=== PATIENT | female | born 1980 | race Caucasian/White ===

== ENCOUNTER 2024-11-08 14:27 | Observation (INO) | payer OTHER, SELFPAY ==
[2024-11-08] VITALS (11 sets, daily range): BP systolic 101–123; BP diastolic 63–91; PULSE 73–74; BMI 18.2
--- NOTE | 2024-11-08 08:32 | ED.GENMED ---
History of Present Illness
General
Chief Complaint: Fainting/Passed Out
Source: patient
Exam Limitations: none
Time Seen by Provider: 11/08/24 08:13
History of Present Illness
History of Present Illness:
44yoF with a history of bipolar disorder and alcohol abuse presenting for evaluation after a syncopal episode. Patient admits to being on a 2 day drinking mehta a few days ago. Last drink was about 36 hours ago. She had a hangover yesterday and
was feeling very dehydrated. She got out of bed and was walking to get some water. She had a syncopal episode in the hallway and struck her head causing a laceration. The episode was unwitnessed so unclear how long she was unconscious for. She
denies any preceding dizziness. She continues to feel dehydrated and has been vomiting. She is otherwise asymptomatic and denies any headache, chest pain, shortness of breath, palpitations.
Past History
Past History
ED Past Medical History: Psychiatric
ED Past Surgical History:
Social History
Tobacco: Non-smoker
Alcohol: Chronic alcoholic
Drug: None
Personal:
Living: alone
Phy Exam
General Physical Exam
General Presentation: well appearing and no apparent distress
General Skin: warm and dry
General Habitus: normal
General Mental: alert
ENT Exam
ENT Exam: other (4cm gaping laceration noted to L eyebrow)
Eye Exam
Eye Exam: PERRL and conjunctiva normal
Cardiovascular Exam
Cardiovascular Exam: regular rate/rhythm and no murmur
Pulmonary Exam
Pulmonary Exam: lungs clear, no respiratory distress, no rales, no crackles, no rhonchi and no wheezing
Neurological Exam
Neurological Exam: alert
Carol Coma Scale
Eye Opening: Spontaneous
Verbal Response: Oriented
Motor Response: Obeys Commands
GCS Total Score: 15
Skin Exam
Skin Exam: normal color and warm/dry
Psychiatric Exam
Psychiatric Exam: normal mood/affect
Course
Orders/Labs/Results
Orders:
Orders
11/08/24 Breakfast
Regular
At Your Request: Limited Participation
Does patient need a safe tray?: No
11/08/24 07:55
Electrocardiogram (*1) Urgent
Reason for Study: Syncope
EKG- Treatment ONCE
11/08/24 08:30
Cardiac Monitoring- Treatment ONCE
Tetanus/Diphth/Acelpertussis [Adacel] 0.5 ml IM .ONCE ONE
11/08/24 08:31
CT Head W/o Iv Contrast Urgent
Comment:
Reason For Exam: syncope, head strike
0.9% Sodium Chloride 1000 ml [Nss] 1,000 ml IV BOLUS
Test Result ONCE
11/08/24 08:36
Complete Blood Count/With Diff Urgent
Comprehensive Metabolic Panel Urgent
HCG, Serum Qualitative Screen Urgent
Magnesium Urgent
Troponin I Urgent
11/08/24 09:44
Ice Pack-Treatment DIRECTED
Location: L eyebrow
Trimethobenzamide [Tigan] 200 mg IM NOW STA
11/08/24 10:19
EKG- Treatment ONCE
11/08/24 10:49
Troponin I Urgent
11/08/24 11:30
Electrocardiogram (*1) Urgent
Reason for Study: Syncope
11/08/24 12:28
0.9% Sodium Chloride 1000 ml [Nss] 1,000 ml IV BOLUS
11/08/24 13:18
0.9% Sodium Chloride 1000 ml [Nss] 1,000 ml Mvi, Adult [Multivitamin] 10 ml Thiamine Injection 100 mg IV 125 mls/hr
11/08/24 13:19
Admit/Transfer Patient As Directed
Co-Sign Provider:
Level of Care: Observation services
Assign to:: Telemetry
Physician / Group: Hannah
Diagnosis: Syncope
Reason for Telemetry: Syncope
Date to Stop Telemetry: 11/10/24
Time to Stop Telemetry: 11:00
PRN Pain Medication Management As Directed
May give lesser potent ordered pain med per pt: Yes
preference::
Protocol:: Medication orders for pain may be administered in a
manner that supports deferring to patient preference
when the pt is:
- Requesting an ordered lesser potent pain medication.
Least to most potent pain medications are defined
as: acetaminophen < NSAID < tramadol < opioids
(morphine, oxycodone, hydromorphone).
- Requesting a lesser dose of the same medication IF
ORDERED.
- Requesting a less intrusive route of administration
if both routes are prescribed by the provider (PO <
IV).
11/08/24 13:20
Code Status As Directed
Resuscitation Status: Full Code
11/10/24 11:00
DC Protocol for Telemetry ONCE
Abnormal Lab Results
11/08/24
08:36
WBC 14.5 H 10^3/uL
(4.8-10.8)
MCH 32.2 H pg
(27.0-31.0)
Abs Immat Gran (auto) 0.1 H 10^3/uL
(0-0.05)
Absolute Neuts (auto) 12.9 H 10^3/uL
(1.4-6.5)
Absolute Lymphs (auto) 1.1 L 10^3/uL
(1.2-3.4)
Neutrophils % 88.8 H %
(42.2-75.2)
Lymphocytes % 7.6 L %
(20.5-51.1)
Carbon Dioxide 19 L mmol/L
(22-30)
BUN 29 H mg/dl
(7-17)
Glucose 114 H mg/dl
(70-99)
AST 39 H U/L
(14-36)
11/08/24 08:36
11/08/24 08:36
Vital Signs
Initial and Last Documented VS:
Initial Vital Signs
Temp Pulse Resp BP Pulse Ox
98.0 F 93 16 110/72 98
11/08/24 07:53 11/08/24 07:53 11/08/24 07:53 11/08/24 07:53 11/08/24 07:53
Last Documented Vital Signs
Temp Pulse Resp BP Pulse Ox
98.0 F 76 13 101/63 99
11/08/24 07:53 11/08/24 15:30 11/08/24 15:30 11/08/24 12:00 11/08/24 15:30
Procedures
Laceration Closure
Left Eye brow:
Status of Wound: clean
Size of Wound in cm: 4
Description of Wound Edges: sharp
Preparation: cleaned with saline
Anesthesia: 1% Lidocaine with epi
Wound exploration: explored to base- no FB
Type of Closure: single layer closure and interrupted sutures
Skin Closure Material: 5-0 nylon
Number of sutures: 5
MDM/Problems Addressed
Differential Diagnosis Includes:
44yoF here after a syncopal episode last night while getting out of bed. Admits to feeling dehydrated with recent alcohol use. VSS. There is a gaping L eyebrow laceration on exam. Differential diagnosis includes but is not limited to: Dehydration,
orthostatic hypotension, vasovagal episode, cardiogenic syncope
Initial ED plan: Check cardiac labs, hCG, magnesium, EKG, and CT head. IV fluid bolus. Repair eyebrow laceration and update Tdap.
*EKG
Interpreted by ED Provider?: Yes
EKG Intrepretation Date: 11/08/24
Heart Rate: 76
Rate: normal
Rhythm: sinus
Alfred: normal axis
Interval: other (QTc 492)
QRS Pattern: normal QRS
Ischemia: no ischemia
*Critical Care Note
Total Time (30-74mins, 75-104mins- exclusive of procedures): Not Applicable
Update Note
Update Note:
EKG shows normal sinus rhythm with a prolonged QTc at 492. Electrolytes within normal limits. White count is 14.5 which may be reactive secondary to vomiting. Troponin within normal limits. CT head negative for acute findings. Eyebrow
laceration repaired as above. Repeat EKG and troponin unchanged. Upon reassessment, patient states she feels very wobbly and feels unsafe to go home. Will admit for further evaluation and management.
ED Attending Note
-
Portions of this chart may have been created with voice recognition software.� Occasional wrong word or��sound alike� substitutions may have occurred due to the inherent limitations of voice recognition software.
Discharge Plan
Departure
Patient Disposition: Admit
Date of Disposition: 11/08/24
Time of Disposition: 12:32
Presentation/result/management discussed w/ accepting MD/DO: Hospitalist
Discharge Problem:
Syncope, Prolonged QT interval, Laceration of left eyebrow, Nausea and vomiting
Interventions
Interventions:
*Risk Screen - Suicide Last Done: 11/08/24 07:53
*Neglect/Abuse Screening Last Done: 11/08/24 07:53
*ED- Fall Risk Assessment Last Done: 11/08/24 08:59
*ED COVID-19 Vaccine History Last Done: 11/08/24 08:59
ED- Cardiac Assessment Last Done: 11/08/24 08:59
ED- Neurological Assessment Last Done: 11/08/24 08:59
[2024-11-08] MEDS: NSS 1000 IV ×2 (08:37→13:31)
[2024-11-08] MEDS: ADACEL 0.5 ML IM (08:41)
[2024-11-08 08:49] LABS: % Basophils 0.3 % (0-2); % Immature Granulocytes 0.3 % (0-0.5); % Lymphocytes 7.6 % (20.5-51.1); % Neutrophils 88.8 % (42.2-75.2); Absolute Immature Granulocytes 0.1 10^3/uL (0-0.05); Absolute Lymphocytes 1.1 10^3/uL (1.2-3.4); Absolute Monocytes 0.4 10^3/uL (0.1-0.6); Absolute Neutrophils 12.9 10^3/uL (1.4-6.5); Hematocrit 38.1 % (37.0-47.0); Hemoglobin 13.6 g/dL (12.0-16.0); Mean Corp Hgb Conc. 35.7 g/dL (33.0-37.0); Mean Corpuscular Hgb 32.2 pg (27.0-31.0); Mean Corpuscular Volume 90.3 fL (81.0-99.0); Mean Platelet Volume 9.3 fL (7.4-10.4); Nucleated Red Blood Cells % 0 %; Platelet Count 242 10^3/uL (130-400); Red Blood Cell Count 4.22 10^6/uL (4.20-5.40); White Blood Cell Count 14.5 10^3/uL (4.8-10.8)
[2024-11-08 08:56] LABS: HCG, Serum Qualitative Screen Negative
[2024-11-08 09:01] LABS: AST (SGOT) 39 U/L (14-36); Albumin 4.7 g/dl (3.5-5.0); Blood Urea Nitrogen 29 mg/dl (7-17); Calcium 9.3 mg/dl (8.4-10.2); Carbon Dioxide 19 mmol/L (22-30); Chloride 98 mmol/L (98-107); Glucose 114 mg/dl (70-99); Magnesium 2.2 mg/dl (1.6-2.3); Total Bilirubin 1.2 mg/dl (0.2-1.3); Total Protein 7.3 g/dl (6.3-8.2); eGFR > 60.00
[2024-11-08 09:12] LABS: Troponin I < 0.012 ng/ml
[2024-11-08 09:28] LABS: Alkaline Phosphatase 63 U/L (38-126); Potassium 4.5 mmol/L (3.5-5.1); Sodium 136 mmol/L (135-145)
[2024-11-08] MEDS: TIGAN 200 MG IM (10:25)
[2024-11-08 10:37] LABS: ALT (SGPT) 32 U/L (0-35)
[2024-11-08 11:27] LABS: Troponin I < 0.012 ng/ml
--- NOTE | 2024-11-08 13:23 | HPS.HSE ---
Family Physician
-
Family Physician: Essence Deal
Chief Complaint
-
Syncope
History of Present Illness
Patient is a 44 y/o female anxiety and alcohol use disorder who presents following a syncopal episode. Patient reports she went on two day drinking binge consuming several bottles of wine over that timeframe. Yesterday she got up to get some water
and passed out. She does not recall much about the event except waking up on the floor with a cut over her left eye. Patient reports following prior binges she experiencing lightheadedness due to dehydration.
Medical History
Past Medical History
Past Medical History: Reports Other
Additional Past Medical History:
Generalized Anxiety Disorder
Alcohol Use Disorder
Past Surgical History: Reports
Social History
Tobacco: Non-smoker
Alcohol: Binge drinker
Family History
Family History: Not pertinent
Allergies / Home Medications
Allergies reflects when Allergies were last updated in [employer].
Home Medications with original date entered in [employer]
Allergy/Medication List:
Allergies
Allergy/AdvReac Type Severity Reaction Status Date / Time
Penicillins Allergy Hives Verified 11/08/24 07:54
Home Medications
bupropion HCl 150 mg 24 hr tablet, extended release 150 mg PO DAILY 11/08/24
desvenlafaxine succinate 50 mg tablet,extended release 24 hr 50 mg PO HS 11/08/24
lurasidone 60 mg tablet 60 mg PO QPM 11/08/24
trazodone 100 mg tablet 100 mg PO HS 11/08/24
Review of Systems
-
A 12 point ROS was completed and negative except as noted: Yes
Constitutional: Denies Fever
Respiratory: Denies Cough or Trouble Breathing
Cardiac: Denies Chest Pain or Palpitations
Physical Exam
Vital Signs
Vital Signs
Temp Pulse Resp BP Pulse Ox
98.0 F 78 11 115/79 98
11/08/24 07:53 11/08/24 08:45 11/08/24 08:45 11/08/24 10:32 11/08/24 07:53
Physical Exam
General: Comfortable and Conversant
HEENT: NormoCephalic, Anicteric and Other (Laceration over left eyebrow with sutures in place)
Respiratory: Clear and Non Labored Respirations
Cardiac: S1/S2 and Regular Rhythm
GI: Soft and Non Tender
Rectal: Deferred by Provider
Musculoskeletal: No Clubbing, No Cyanosis and No Edema
Skin: Warm and Dry
Neuro: Awake, Alert, Oriented and Nonfocal/grossly intact
Psych: Calm
Laboratory Results
-
11/08/24 08:36
11/08/24 08:36
Laboratory Results
Total Bilirubin 1.2 mg/dl (0.2-1.3) 11/08/24 08:36
AST 39 U/L (14-36) H 11/08/24 08:36
ALT 32 U/L (0-35) 11/08/24 08:36
Alkaline Phosphatase 63 U/L (38-126) 11/08/24 08:36
Troponin I < 0.012 ng/ml 11/08/24 10:49
Data Reviewed
-
Lab Data: Labs Reviewed by me
Impression/Plan
-
Syncope, suspect volume depletion following alcohol binge
-Continue IVFs
-Monitor on Telemetry
-Check orthostatic vital signs
Prolonged QT, likely related to psych meds and alcohol use
-Continue psych meds at current doses
-Recheck ECG in AM
-If QT remains prolonged may need to consider decreasing medication doses - Patient notes trazodone dose increased about a month ago
Generalized Anxiety Disorder
-Continue bupropion, Pristiq, Latuda and Trazodone
Alcohol Use Disorder
-Continue thiamine and folic acid
-Monitor for withdrawal
DVT proph: SCDs
Code Status: Full Code
--- NOTE | 2024-11-08 13:33 | W.PN.UPDATE ---
Update Note
Progress Note Update
This is an addendum to the H&P written by Selena Skelton on 11/08/2024.� Patient seen examined independently with PA.
44-year-old female past medical history of alcohol use disorder, prior syncopal episode/dizziness secondary to alcohol, anxiety, presenting with syncopal episode.� She was binge drinking alcohol with multiple bottles of wine over the past few days.�
Has forehead laceration.
Not currently in withdrawal.� EKG shows QTc of 492.�
Labs show leukocytosis.
Patient with syncopal episode with forehead laceration secondary to volume depletion from been drinking alcohol.� Not currently in withdrawal.� QTc prolongation likely secondary to psychiatric medications and alcohol.
Patient has stitches for forehead laceration.
IV fluids with thiamine and folate.� Alcohol withdrawal protocol.� Check EKG tomorrow, anticipate QTc prolongation should improve with alcohol cessation.
[2024-11-08] MEDS: MULTIVITAMIN 1011 MG IV (15:13)
[2024-11-08] MEDS: MULTIVITAMIN 1011 ML IV (15:13)
[2024-11-08] MEDS: LATUDA 60 MG PO (18:18)
[2024-11-08] MEDS: VITAMIN B1 100 MG PO (19:58)
[2024-11-08] MEDS: TYLENOL 650 MG PO (19:58)
[2024-11-08] MEDS: PRISTIQ 50 MG PO (21:18)
[2024-11-08] MEDS: DESYREL 100 MG PO (21:19)
[2024-11-08] MEDS: ATIVAN 1 MG PO (21:35)
[2024-11-09 02:56] VITALS: BP 112/66
[2024-11-09] MEDS: NSS 1000 IV ×3 (04:59→23:07)
[2024-11-09 07:00] VITALS: BP 108/69; BP 114/70; BP 123/71; PULSE 68; PULSE 72; PULSE 75
[2024-11-09 07:17] LABS: Blood Urea Nitrogen 16 mg/dl (7-17); Calcium 8.4 mg/dl (8.4-10.2); Carbon Dioxide 28 mmol/L (22-30); Chloride 106 mmol/L (98-107); Estimated Creatinine Clearance 79 ml/min; Glucose 81 mg/dl (70-99); Magnesium 2.4 mg/dl (1.6-2.3); Potassium 4.3 mmol/L (3.5-5.1); Sodium 139 mmol/L (135-145); eGFR > 60.00
[2024-11-09] MEDS: WELLBUTRIN XL (24 hour extended release) 150 MG PO (08:18)
[2024-11-09] MEDS: VITAMIN B1 100 MG PO (08:18)
[2024-11-09] MEDS: FOLVITE 1 MG PO (08:18)
--- NOTE | 2024-11-09 08:58 | W.PN.HOSP.TC ---
Today's Communication/Plan
-
IV thiamine
BMP & CBC in AM
Assessment / Plan
Assessment / Plan
Physical Exam
General: Comfortable and Conversant
HEENT: NormoCephalic, Anicteric and Other (Laceration over left eyebrow with sutures in place)
Respiratory: Clear and Non Labored Respirations
Cardiac: S1/S2 and Regular Rhythm
GI: Soft and Non Tender
Rectal: Deferred by Provider
Musculoskeletal: No Clubbing, No Cyanosis and No Edema
Skin: Warm and Dry
Neuro: Awake, Alert, Oriented and Nonfocal/grossly intact
Psych: Calm
Syncope, suspect vasovagal with volume depletion following alcohol binge and not eating for 2-[address] head no acute finding. Negative orthostatic hypotension. No cardiac arrhythmias on heart monitor. Reviewed EKGs with on-call driver education road instructor, no need for inpatient consultation, recommend alcohol cessation.
-Continue IVFs also discussed with neurologist on-call,
-No indication for EEG. Recommend alcohol cessation
-Monitor on Telemetry
Prolonged QT, likely related to psych meds and alcohol use now normalized, reviewed with driver education road instructor on-call,
-Continue psych meds at current doses
Normal magnesium potassium level
Generalized Anxiety Disorder
She reports good outpatient care receiving with her psychologist/psychiatrist, no medication side effects noted. No homicidal or suicidal thoughts
-Continue bupropion, Pristiq, Latuda and Trazodone
#Alcohol Use Disorder
Patient reports good social support from family/parents.
Due to history of syncopal episode, will give high-dose thiamine/short course
-Continue thiamine and folic acid
-Monitor for withdrawal.
Currently, she is lucid and fully oriented with no signs of delirium.
DVT proph: Subcu Lovenox
Underweight, she reports daily running around 3 miles. Advised to continue healthy lifestyle/avoid alcohol/improve diet and take supplements
#Left eyebrow wound after the fall, sutures are clean. No bleeding
#Leukocytosis, reactive, no fever. No hypoxia. No GI or urinary symptoms.
Code Status: Full Code
Total time spent to see the patient, examine the patient, review data and lab result, discuss treatment plan with the patient, nursing staff around 55 minutes
Anticipated Discharge: 24 - 48 hours
Subjective/Interval History
-
Date of Service: November 09, 2024
she is feeling better
No confusion or anxiety
Objective Data
-
Labs:
Laboratory Results
11/09/24
05:48
Sodium 139
Potassium 4.3
Chloride 106
Carbon Dioxide 28
BUN 16
Creatinine 0.7
Glucose 81
Calcium 8.4
Vital Signs:
Vital Signs
Temp Pulse Resp BP Pulse Ox
98 F 75 19 108/69 98
11/09/24 07:00 11/09/24 07:00 11/09/24 07:00 11/09/24 07:00 11/09/24 07:00
I&O
11/08/24 11/09/24 11/10/24
06:59 06:59 06:59
Intake Total 1580 / 1580
Balance 1580 / 1580
--- NOTE | 2024-11-09 10:24 | CM ---
Addendum entered by Norah Metz 11/09/24 10:58:
CM was able to awake pt. She is from home, [facility] and [facility]. Plan is to dc home with no needs. Pt will arrange transport with family when medically stable for dc. Per pt she is still pending a Cards and Neuro Consult. Spoke with RN.
Original Note:
MARJAN reviewed chart. Pt arrived from home. Attempted to complete assessment but pt was unavailable to speak with. Will try to reassess at a later time. Anticipate dc to home at dc.
MARJAN/GREG will continue to follow.
[2024-11-09 11:00] VITALS: BP 114/72
[2024-11-09] MEDS: TYLENOL 650 MG PO ×2 (12:27→17:12)
[2024-11-09 15:00] VITALS: BP 115/76
[2024-11-09] MEDS: THIAMINE INJECTION 255 MG IV ×2 (15:05→23:08)
[2024-11-09] MEDS: LATUDA 60 MG PO (17:14)
[2024-11-09 19:47] VITALS: BP 110/76
[2024-11-09] MEDS: HEPARIN 5000 UNITS SC (19:53)
[2024-11-09] MEDS: DESYREL 100 MG PO (21:02)
[2024-11-09] MEDS: PRISTIQ 50 MG PO (21:02)
[2024-11-09 23:14] VITALS: BP 105/68
[2024-11-10 03:35] VITALS: BP 113/73
[2024-11-10] MEDS: TYLENOL 650 MG PO ×2 (03:48→09:23)
[2024-11-10 06:54] VITALS: BP 112/76
[2024-11-10] MEDS: WELLBUTRIN XL (24 hour extended release) 150 MG PO (08:03)
[2024-11-10] MEDS: FOLVITE 1 MG PO (08:03)
[2024-11-10] MEDS: HEPARIN 5000 UNITS SC (08:04)
[2024-11-10] MEDS: THIAMINE INJECTION 255 MG IV (08:04)
[2024-11-10 08:12] LABS: Hematocrit 31.9 % (37.0-47.0); Hemoglobin 11.1 g/dL (12.0-16.0); Mean Corp Hgb Conc. 34.8 g/dL (33.0-37.0); Mean Corpuscular Hgb 31.7 pg (27.0-31.0); Mean Corpuscular Volume 91.1 fL (81.0-99.0); Mean Platelet Volume 10.1 fL (7.4-10.4); Platelet Count 167 10^3/uL (130-400); White Blood Cell Count 4.2 10^3/uL (4.8-10.8)
[2024-11-10 08:13] LABS: ALT (SGPT) 19 U/L (0-35); AST (SGOT) 28 U/L (14-36); Albumin 3.7 g/dl (3.5-5.0); Alkaline Phosphatase 48 U/L (38-126); Blood Urea Nitrogen 6 mg/dl (7-17); Calcium 8.3 mg/dl (8.4-10.2); Carbon Dioxide 26 mmol/L (22-30); Chloride 107 mmol/L (98-107); Estimated Creatinine Clearance 92 ml/min; Glucose 92 mg/dl (70-99); Magnesium 1.9 mg/dl (1.6-2.3); Potassium 3.7 mmol/L (3.5-5.1); Sodium 139 mmol/L (135-145); Total Bilirubin 0.8 mg/dl (0.2-1.3); Total Protein 5.7 g/dl (6.3-8.2); eGFR > 60.00
[2024-11-10 11:00] VITALS: BP 110/74
[2024-11-10] MEDS: NSS 1000 IV (11:24)
--- NOTE | 2024-11-10 12:21 | W.PN.HOSP.TC ---
Today's Communication/Plan
-
Ok for DC today
Assessment / Plan
Assessment / Plan
Physical Exam
General: Comfortable and Conversant
HEENT: NormoCephalic, Anicteric and Other (Laceration over left eyebrow with sutures in place)
Respiratory: Clear and Non Labored Respirations
Cardiac: S1/S2 and Regular Rhythm
GI: Soft and Non Tender
Rectal: Deferred by Provider
Musculoskeletal: No Clubbing, No Cyanosis and No Edema
Skin: Warm and Dry
Neuro: Awake, Alert, Oriented and Nonfocal/grossly intact
Psych: Calm
Syncope, suspect vasovagal with volume depletion following alcohol binge and not eating for 2-[address] head no acute finding. Negative orthostatic hypotension. No cardiac arrhythmias on heart monitor. Reviewed EKGs with on-call de icer element winder, no need for inpatient consultation, recommend alcohol cessation.
-Continue IVFs also discussed with neurologist on-call,
-No indication for EEG. Recommend alcohol cessation
-Monitor on Telemetry
Prolonged QT, likely related to psych meds and alcohol use now normalized, reviewed with de icer element winder on-call,
-Continue psych meds at current doses
Normal magnesium potassium level
Generalized Anxiety Disorder
She reports good outpatient care receiving with her psychologist/psychiatrist, no medication side effects noted. No homicidal or suicidal thoughts
-Continue bupropion, Pristiq, Latuda and Trazodone
#Alcohol Use Disorder
Patient reports good social support from family/parents.
Due to history of syncopal episode, will give high-dose thiamine/short course
-Continue thiamine and folic acid
-Monitor for withdrawal.
Currently, she is lucid and fully oriented with no signs of delirium.
DVT proph: Subcu Lovenox
Underweight, she reports daily running around 3 miles. Advised to continue healthy lifestyle/avoid alcohol/improve diet and take supplements
#Left eyebrow wound after the fall, sutures are clean. No bleeding
#Leukocytosis, reactive, no fever. No hypoxia. No GI or urinary symptoms.
Code Status: Full Code
Total time spent to see the patient, examine the patient, review data and lab result, discuss treatment plan with the patient, nursing staff around 55 minutes
Anticipated Discharge: Today
Subjective/Interval History
-
Date of Service: November 10, 2024
feeling well except pain at laceration site
eating and drinking well
feels ready to leave hospital
Objective Data
-
Labs:
Laboratory Results
11/10/24
06:39
WBC 4.2 L
Hgb 11.1 L
Hct 31.9 L
Plt Count 167 D
Sodium 139
Potassium 3.7
Chloride 107
Carbon Dioxide 26
BUN 6 L
Creatinine 0.6
Glucose 92
Calcium 8.3 L
Total Bilirubin 0.8
AST 28
ALT 19
Alkaline Phosphatase 48
Vital Signs:
Vital Signs
Temp Pulse Resp BP Pulse Ox
98.1 F 71 18 112/76 99
11/10/24 06:54 11/10/24 06:54 11/10/24 06:54 11/10/24 06:54 11/10/24 08:00
I&O
11/09/24 11/10/24 11/11/24
06:59 06:59 06:59
Intake Total 1580 / 1580 3715 / 3715
Balance 1580 / 1580 3715 / 3715
Review of Systems
-
History Source: Patient
All other systems: Reviewed and negative
Physical Exam
-
General: No Apparent Distress
HEENT: Other (forehead laceration above left eye with 5 sutures )
Respiratory: Clear to Auscultation; Negative Wheezes
Cardiac: Regular Rhythm and S1/S2
GI: Soft and Nontender
Musculoskeletal: No Edema
Skin: Warm and Dry; Negative Rash
Neuro: AO x 3
Psych: Calm
Data Reviewed
-
Diagnostic Radiology: Report Reviewed by me
Labs: Labs Reviewed by me
--- NOTE | 2024-11-10 12:33 | W.DS.TRANS ---
DC Summary - School Adjustment Counselor
-
Discharge Instructions:
Discharge Diagnosis/Procedures syncope in setting of alcohol intoxication with
left forehead laceration
Diet Regular
Activity As tolerated
Driving Restrictions As prior to admission
Bathing Restrictions None
Instructions:
Stand-Alone Forms:
Changes to Home Medications: Yes
Discharge Medications:
DC Medications w/original date entered in [employer]
bupropion HCl 150 mg 24 hr tablet, extended release 150 mg PO DAILY 11/08/24
desvenlafaxine succinate 50 mg tablet,extended release 24 hr 50 mg PO HS 11/08/24
lurasidone 60 mg tablet 60 mg PO QPM 11/08/24
trazodone 100 mg tablet 100 mg PO HS 11/08/24
folic acid 1 mg tablet 1 mg PO DAILY #30 tabs 11/10/24
thiamine HCl (vitamin B1) 100 mg capsule 100 mg PO DAILY #30 caps 11/10/24
Home Medication Changes
addition of thiamine/folate
Pending Results: No
--- NOTE | 2024-11-10 13:04 | CM ---
Patient stable for d/c today.
Met w/ patient bedside, agreeable to d/c today. Patient admitted as obs. MARIE form verbally reviewed, copy given to patient, copy on chart
Parents will transport home
Plan: Home, no needs
--- NOTE | 2024-11-10 14:32 | W.DCSUMMARY ---
Discharge Summary
Discharge Data
Date of Admission: 11/08/24
Date of Discharge: 11/10/24
-
Pending Results: No
Hospital Course
Discharging Physician : Dr. Monet Lee
Disposition : Home
Primary care physician : Dr. Essence Deal
Principal Discharge diagnosis : Syncope in setting of alcohol intoxication
Hospital Course :
Ms. Tiffany Valdez is a 44 yo woman with hx generalized anxiety disorder, alcohol use disorder with history of binge drinking who presents to the ER after an episode of syncope. Patient was on a two day drinking binge. Triage vitals stable. Labs
with WBC 14.5., creatinine 0.9. Initial EKG with QTc 492; improved to 478.
She was admitted to medicine and monitored on telemetry without acute events. Etiology of syncope likely orthostasis in setting of dehydration versus vasovagal. Case discussed with Cardiology and Neurology and no further work-up recommended.
Patient was feeling better on HD 2, has not required Ativan for alcohol withdrawal. She is eating and drinking well. She has a good support network at home and felt ready for discharge.
Patient had sustained a left eyebrow laceration from fall and is s/p 5 sutures in her ER visit. These should be removed after 5 days (November 13). Patient is told to follow up with PCP for suture removal. Head CT without acute abnormality.
Time spent on discharge was 32 minutes.
Important imaging findings :
HEAD CT 11/08/24
IMPRESSION:
No acute intracranial abnormality noted.
No calvarial fracture. Left anterior frontal superficial scalp soft tissue injury.
Procedure findings :
Discharge Plan
-
Patient Disposition: Home (Routine Discharge)
Discharge Diagnosis/Procedures: syncope in setting of alcohol intoxication with left forehead laceration
Condition: Good
Diet: Regular
Activity: As tolerated
Driving Restrictions: As prior to admission
Bathing Restrictions: None
Referrals:
Essence Deal MD [Primary Care Provider] - in less than 1 week
Additional Discharge Medication Instructions: Please follow up with medical provider 11/13 for suture removal (5 days post placement)
Prescriptions:
New
folic acid 1 mg Tablet
1 mg PO DAILY Qty: 30 0RF
thiamine HCl (vitamin B1) 100 mg capsule
100 mg PO DAILY Qty: 30 0RF
Continued
trazodone 100 mg Tablet
100 mg PO HS
bupropion HCl 150 mg tablet extended release 24 hr
150 mg PO DAILY
desvenlafaxine succinate 50 mg tablet extended release 24 hr
50 mg PO HS
lurasidone 60 mg tablet
60 mg PO QPM
Rx Instructions:
take with at least 350 calories of food
Discharge Orders:
Discharge Patient (As Directed); Ordered 11/10/24
Ordered By: Monet Lee
Discharge Date and Time
Discharge Date/Time: 11/10/24 14:27
Print Language: MONGOLIAN
== END 2024-11-10 14:27 | disposition home or self-care (01) ==
LOC: 4 WEST ACU 14:27
PROVIDERS: Internal Medicine; Physician Assistant; Physician Assistant Medical; ADMITTING PHYSICIAN Hospitalist; ATTENDING PHYSICIAN Student in an Organized Health Care Education/Training Program; EMERGENCY PHYSICIAN Emergency Medicine; PRIMARYCARE PHYSICIAN Family Medicine
DX: F10.129 Alcohol abuse with intoxication, unspecified (principal); I49.8 Other specified cardiac arrhythmias; F41.1 Generalized anxiety disorder
CPT/HCPCS: 12052; 70450; 80048; 80053; 83735; 84484; 84703; 85025; 85027; 90471; 90715; 93005; 96361; 96365; 96366; 96372; 99285; G0378